=== PATIENT | female | born 1965 | race Caucasian/White ===

== ENCOUNTER 2024-04-17 15:54 | Emergency (ER) | payer MEDICAID ==
[~2024-04-17] VITALS: Ht 162.6 cm; Wt 72.6 kg
[2024-04-17 15:56] VITALS: BP 183/116; PULSE 98; RESP 18; TEMP 97.6; O2SAT 98
[2024-04-17] MEDS: amLODIPine 5 MG TAB PO ONE (16:23)
[2024-04-17 17:18] VITALS: BP 158/98; PULSE 94; RESP 16; TEMP 97.6; O2SAT 98
== END 2024-04-17 17:17 | disposition home or self-care (01) ==
LOC: MED 15:54
DX: I11.0 Hypertensive heart disease with heart failure (principal); I50.9 Heart failure, unspecified
CPT/HCPCS: 99283